=== PATIENT | female | born 1970 | race Caucasian/White ===

== ENCOUNTER 2017-01-12 07:12 | Day surgery (SDC) | payer BC ==
[2017-01-12] MEDS ORDERED: Lactated Ringers 1,000 ML IV SCH (07:15)
[2017-01-12] MEDS ORDERED: Midazolam 1 MG/ML 2 ML SDV IV ONE (09:15)
[2017-01-12] MEDS ORDERED: Propofol 200 MG/20 ML SDV IV ONE (09:15)
[2017-01-12] MEDS ORDERED: Lidocaine 2% 100 MG/5 ML Syringe IVPUSH ONE (09:15)
[2017-01-12 10:27] VITALS: BP 120/67
--- NOTE | 2017-01-12 10:40 | PCM.HPR ---
H & P Addendum review - H & P Addendum Review Date of Original H & P: 01/02/17 Date Reviewed: 01/12/17 Time Reviewed: 08:45 Patient was Examined: No Changes Please Note any Changes: No further bleeding since last week
--- NOTE | 2017-01-12 10:42 | PCM.OPNOTE ---
- General Post-Op/Procedure Note Date of Surgery/Procedure: 01/12/17 Operative Procedure(s): EGD. Colonoscopy with Bx Findings: Areas of Sig Colitis Pre Op Diagnosis: N&V; Hematochezia Post-Op Diagnosis: Same Anesthesia Technique: SHAUNA Primary Surgeon: Shyam Ocasio Anesthesia Provider: Bhargavi Kay Pathology: Colon Bx EBL in mLs: 0 Complications: None Condition: Good
--- NOTE | 2017-01-12 15:31 | OR ---
DATE OF OPERATION: 01/12/2017 SURGEON: Shyam Ocasio MD PREOPERATIVE DIAGNOSES: 1. Recent nausea and vomiting. 2. Hematochezia. POSTOPERATIVE DIAGNOSES: 1. Normal esophagogastroduodenoscopy. 2. Sigmoid colitis. PROCEDURES PERFORMED: 1. Esophagogastroduodenoscopy. 2. Colonoscopy with biopsy. ANESTHESIA: IV sedation. DESCRIPTION OF PROCEDURE: The patient was brought to the procedure room, where she was placed on the left side after IV sedation was administered. Oral bite block was placed and the upper endoscope was advanced into the esophagus under direct vision without difficulty. Vocal cords were viewed and were normal. The scope was advanced to the third portion of the duodenum. Duodenum and pylorus were normal. Antrum and body of the stomach were normal. Retroflexion reveals a normal appearing fundus. Squamocolumnar junction was normal. There was no evidence of recent bleeding. Air was removed and the scope withdrawn through the esophagus which was normal. The patient tolerated this portion of the procedure well. Next, colonoscopy was performed, after digital rectal exam was performed, which was normal. The colonoscope was inserted and advanced to the level of the cecum without difficulty. Cecal position was confirmed by identifying the appendiceal lumen and ileocecal valve. Prep was good and surfaces were well visualized. Upon withdrawing the scope, the ascending, transverse, and descending colon were normal in appearance. In the sigmoid colon from approximately 15-40 cm were 3 or 4 skipped areas of mild colitis. There was no evidence of recent bleeding but this appears to be the obvious source of her bleeding last week. I did take several biopsies from these areas. Rectum was normal and retroflexion was normal. Air was removed and the scope withdrawn. The patient tolerated the procedure well and returned to recovery in stable condition. Findings were reviewed with the patient and this appears to be a self-limited colitis that appears to be resolving. I will have her follow up with Dr. Truong next week in the clinic for followup and review of pathology report. /[id number] KENNY/EDUARDO
== END 2017-01-12 10:55 | disposition home or self-care (01) ==
LOC: FB.SDS 07:12
PROVIDERS: ATTEND Surgery
DX: K52.89 Other specified noninfective gastroenteritis and colitis (principal); Z91.012 Allergy to eggs; Z91.011 Allergy to milk products; Z91.018 Allergy to other foods; Z79.899 Other long term (current) drug therapy; Z90.722 Acquired absence of ovaries, bilateral; Z98.890 Other specified postprocedural states
CPT/HCPCS: 43235; 45380; 88305; J2250; J2704; J7120